=== PATIENT | male | born 1995 | race Caucasian/White ===

== ENCOUNTER 2020-08-24 09:47 | Emergency (ER) | payer OTHER ==
[~2020-08-24 09:47] MED LIST: CLEOCIN HCL300 MG PO; NAPROSYN500 MG PO
== END 2020-08-24 11:25 | disposition home or self-care (01) ==
LOC: ER1 09:47
DX: S61.011A Laceration without foreign body of right thumb without damage to nail, initial encounter (principal); D64.9 Anemia, unspecified; Z88.0 Allergy status to penicillin; Z23 Encounter for immunization; F17.200 Nicotine dependence, unspecified, uncomplicated; W26.8XXA Contact with other sharp object(s), not elsewhere classified, initial encounter; Y92.009 Unspecified place in unspecified non-institutional (private) residence as the place of occurrence of the external cause
CPT/HCPCS: 12001; 90471; 90715; 99283

== ENCOUNTER 2021-09-09 12:59 | Emergency (ER) | payer OTHER ==
[2021-09-09] MEDS ORDERED: IBUPROFEN600 MG PO (13:41)
[2021-09-09] MEDS ORDERED: NORFLEX 100 MG100 MG PO (13:41)
== END 2021-09-09 14:10 | disposition home or self-care (01) ==
LOC: ER1 12:59
DX: S09.90XA Unspecified injury of head, initial encounter (principal); F17.210 Nicotine dependence, cigarettes, uncomplicated; Z88.0 Allergy status to penicillin; V43.52XA Car driver injured in collision with other type car in traffic accident, initial encounter; Y92.410 Unspecified street and highway as the place of occurrence of the external cause
CPT/HCPCS: 99283

== ENCOUNTER 2022-01-02 09:04 | Emergency (ER) | payer OTHER ==
[~2022-01-02 09:04] MED LIST changes: +IBUPROFEN600 MG PO; +NORFLEX 100 MG100 MG PO
[2022-01-02] MEDS ORDERED: DELSYM30 MG/5 ML PO (11:56)
[2022-01-02] MEDS ORDERED: FLONASE 0.05% N16 GM (11:56)
[2022-01-02] MEDS ORDERED: SUDAFED 60 MG T60 MG PO (11:56)
== END 2022-01-02 12:08 | disposition home or self-care (01) ==
LOC: ER1 09:04
DX: U07.1 COVID-19 (principal); Z88.0 Allergy status to penicillin
CPT/HCPCS: 0240U; 87081; 87880; 99283